=== PATIENT | male | born 1990 | race Caucasian/White ===

== ENCOUNTER 2019-07-28 02:39 | Emergency (ER) | payer SELFPAY ==
[~2019-07-28] VITALS: Ht 188 cm; Wt 86.4 kg
[2019-07-28 02:42] VITALS: BP 123/80
== END 2019-07-28 04:19 | disposition home or self-care (01) ==
LOC: ED 03:45
DX: S00.03XA Contusion of scalp, initial encounter (principal); S00.12XA Contusion of left eyelid and periocular area, initial encounter; S00.81XA Abrasion of other part of head, initial encounter; Y04.8XXA Assault by other bodily force, initial encounter; Y93.89 Activity, other specified; Y92.098 Other place in other non-institutional residence as the place of occurrence of the external cause; Y99.8 Other external cause status
CPT/HCPCS: 70450; 70486; 99285

== ENCOUNTER 2019-11-03 13:51 | Emergency (ER) | payer SELFPAY ==
[~2019-11-03] VITALS: Ht 182.9 cm; Wt 78.0 kg
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
[2019-11-03 13:56] VITALS: BP 127/82
--- NOTE | 2019-11-03 14:02 | NUR ---
sri had brought patient to bathroom but he wouldnt come out. went and opened door and he was dressed staring at his pee in the cup. he then began screaming that its not sterile. i asked for cup and he then threw cup away. he is very erratic behavior and talking about unrelated things, he isn't getting into bed, not allowing me to take vitals to check him in. repetitive questions. got md saavedra.
--- NOTE | 2019-11-03 14:22 | NUR ---
CONSENT TO UPDATE PT MOM (RYAN) ON PT STATUS OK BY PT.
--- NOTE | 2019-11-03 14:31 | NUR ---
BREAK RN: PT PACING AROUND ROOM, REFUSING VITAL SIGNS. PT RAMBLING AND CAN NOT BE REDIRECTED. PT EXPERIENCING PARANOIA. AT BEDSIDE SPEAKING W/ PT AFTER SPEAKING W/ PTS MOM ON PHONE.
[2019-11-03] MEDS ORDERED: LORazepam 1MG TABLET ONE (14:35)
--- NOTE | 2019-11-03 14:40 | NUR ---
PT AMBULATED TO THE BR W/ A STEADY GAIT.
--- NOTE | 2019-11-03 14:52 | NUR ---
BREAK RN: PT ASKED TO COME OUT OF BATHROOM, PT STATES "I JUST NEED ONE MORE MINUTE" REFUSING TO COME OUT OF BATHROOM AT THIS TIME.
[2019-11-03] MEDS ORDERED: LORazepam 1MG TABLET PO ONE (15:00)
[2019-11-03] MEDS ORDERED: PLEASE ENTER ALLERGIES MC SCH (15:00)
--- NOTE | 2019-11-03 15:01 | NUR ---
BREAK RN: PT REFUSING TO COME OUT OF BATHROOM, SECURITY CALLED. SECURITY CLOSED DOOR AND TOLD PT THEY WOULD GIVE HIM 5 MORE MINUTES AND THEN HE WOULD WALK BACK TO THE ROOM.
--- NOTE | 2019-11-03 15:04 | NUR ---
GOT BACK FROM [facility] AND PATIENT HAS REPORTEDLY BEEN IN BATHROOM 20MINUTES WITH DOOR LOCKED. GOT HERMAN AND UNLOCKED AND HES STANDING AT MIRROR NOT ANSWERING QUESTIONS JUST SAYING HE NEED PRIVACY. CALLED SECURITY, THEY ARE HERE AND ATTEMPTING TO GET HIM OUT OF BATHROOM.
--- NOTE | 2019-11-03 15:05 | NUR ---
BREAK RN: PT REFUSING TREATMENT, REFUSING TO AMBULATED BACK TO ROOM. DENIES SI/HI. PT STATES HE JUST WANTS HIS MOM TO PICK HIM UP. PT ESCORTED BY SECURITY OUT OF ED.
--- NOTE | 2019-11-03 15:10 | NUR ---
BREAK RN: PER , PT IS TO BE PLACED ON LEGAL HOLD. SECURITY OUTSIDE AMBULANCE BAY W/ PT AND UPDATED ON PLAN.
[2019-11-03] MEDS ORDERED: ZIPRASIDONE 20 MG INJ IM ONE ×2 (15:12→15:30)
--- NOTE | 2019-11-03 15:35 | NUR ---
SECURITY AT BEDSIDE. PATIENT STANDING IN CORNER AND REFUSING ALL CARE. MEDICATED. PATIENT PACES AROUND ROOM. REPEATS HIMSELF. VERY ERRATIC BEHAVIOR. REFUSING TO TAKE CLOTHES OFF. ALL OBJECTS OF HARM REMOVED. STILL ATTEMPTING TO GET HIM UNDRESSED.
--- NOTE | 2019-11-03 15:37 | NUR ---
TASK RN: PT CONSENTED TO [facility].
--- NOTE | 2019-11-03 15:50 | NUR ---
TASK RN: PT STILL REFUSING TO REMOVE CLOTHING. PT REFUSING HEAD CT R/T INSURANCE RESASONS.
--- NOTE | 2019-11-03 15:56 | NUR ---
TASK RN: PT REPORTS SMOKING A LARGE AMOUNT OF WEED TODAY AND ACKNOWLEDGES THAT MAY BE THE SOURCE OF HIS ERRATIC BEHAVIOR. OFFERED TO PT TO WALK TO SHOWER ROOM AND LEAVE DOOR CRACKED SO HE CAN CHANGE PRIVATELY BUT PT STILL REFUSING TO CHANGE, STATES HE WOULD WANT THE DOOR SHUT ALL THE WAY. PT EDUCATED ON ED PROCESS AND PROTOCOLS FOR PT SAFETY.
--- NOTE | 2019-11-03 16:05 | NUR ---
TASK RN: PER DIRECTOR LEARNING, PT RAN OUT OF ROOM AND OUT AMBULANCE BAY. SECURITY NOTIFIED. HARJIT RN CALLED [facility].
--- NOTE | 2019-11-03 16:07 | NUR ---
TASK RN: UPDATED ON PT ELOPEMENT.
[2019-11-03 16:09] LABS: BASOPHILS # (AUTO) 0.02 x10^3/uL (0-0.1); BASOPHILS % (AUTO) 0 % (0-1); EOSINOPHILS # (AUTO) 0.07 x10^3/uL (0-0.4); EOSINOPHILS % (AUTO) 1 % (1-7); LYMPHOCYTES # (AUTO) 1.05 x10^3/uL (1-3.4); LYMPHOCYTES % (AUTO) 21 % (22-44); MD NO; MEAN CORPUSCULAR HEMOGLOBIN 31.3 pg (27.5-34.5); MEAN CORPUSCULAR HGB CONC 33.1 g/dL (33.2-36.2); MEAN CORPUSCULAR VOLUME 94.4 fL (81-97); MEAN PLATELET VOLUME 8.1 fL (7.4-10.4); MONOCYTES # (AUTO) 0.42 x10^3/uL (0.2-0.8); MONOCYTES % (AUTO) 8 % (2-9); NEUTROPHILS # (AUTO) 3.53 x10^3/uL (1.8-6.8); NEUTROPHILS % (AUTO) 69 % (42-75); PLATELET COUNT 212 x10^3/uL (130-400); RED BLOOD COUNT 4.56 x10^6/uL (4.38-5.82); RED CELL DISTRIBUTION WIDTH 14.4 % (9.4-14.8)
[2019-11-03 16:18] LABS: ALANINE AMINOTRANSFERASE 35 U/L (12-78); ALBUMIN 4.3 g/dL (3.4-5.0); ANION GAP 7 mmol/L (5-15); CALCIUM 9.4 mg/dL (8.5-10.1); CHLORIDE 112 mmol/L (98-107); CREATININE 0.81 mg/dL (0.7-1.3)
[2019-11-03 16:23] LABS: ALKALINE PHOSPHATASE 62 U/L (45-117); BILIRUBIN,TOTAL 0.4 mg/dL (0.2-1.0)
[2019-11-03 16:26] LABS: SALICYLATE LEVEL < 1.7 mg/dL (2.8-20.0)
== END 2019-11-03 15:08 ==
LOC: EDBD 13:51 → ED 15:02 → MERGE 15:57 → ED 16:08
DX: S09.90XA Unspecified injury of head, initial encounter (principal); F22 Delusional disorders; X58.XXXA Exposure to other specified factors, initial encounter; Y93.89 Activity, other specified; Y92.488 Other paved roadways as the place of occurrence of the external cause; Y99.8 Other external cause status
CPT/HCPCS: 36415; 80053; 80307; 85025; 96372; 99283; J3486

== ENCOUNTER 2019-12-24 21:38 | Emergency (ER) | payer MEDICAID, OTHER ==
[~2019-12-24] VITALS: Ht 188 cm; Wt 75.0 kg
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
[2019-12-24] MEDS ORDERED: LIDOCAINE-MPF 1%, 5ML ONE (21:55)
--- NOTE | 2019-12-24 22:08 | NUR ---
PT REFUSING SUTURES FOR LACERATIONS. PT TO GO BACK WITH [facility]. ERP STATES TO HOLD KURT
[2019-12-24] MEDS ORDERED: ZIPRASIDONE 20 MG INJ IM ONE ×2 (22:14→22:30)
--- NOTE | 2019-12-24 22:21 | NUR ---
PER MD, PT TO RECIEVE [facility]ON IM TO CALM PT DOWN FOR LAC REPAIR. PT IS ALTERED, A/OX1, AND MEDICALLY IT IS NECESSARY TO REPAIR LACERATION PRIOR TO GOING BACK TO ALF. PT MEDICATED PER EMAR, PT QUITE RESTLESS.
--- NOTE | 2019-12-24 22:33 | NUR ---
PT MUMBLING TO HIMSELF, STARING INTENSLY AT THIS RN, AND RESTLESS IN BED. PT ON CONTINUOUS PULSE OX.
--- NOTE | 2019-12-24 23:07 | NUR ---
ERP AT BEDSIDE FOR SUTURES, PT DOZING UNTERMITTENTLY DURING REPAIR.
[2019-12-24] MEDS ORDERED: NEOSPORIN OINT. PKT 1 PACKET ONE (23:31)
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
[2019-12-24 23:45] VITALS: BP 119/76
== END 2019-12-24 23:48 | disposition home or self-care (01) ==
LOC: ED 21:52
DX: S01.81XA Laceration without foreign body of other part of head, initial encounter (principal); F20.9 Schizophrenia, unspecified; F17.290 Nicotine dependence, other tobacco product, uncomplicated; R41.82 Altered mental status, unspecified; W18.30XA Fall on same level, unspecified, initial encounter; Y93.89 Activity, other specified; Y92.410 Unspecified street and highway as the place of occurrence of the external cause; Y99.8 Other external cause status
CPT/HCPCS: 12013; 96372; 99283; 99406; J3486; 12011

== ENCOUNTER 2020-01-06 06:42 | Emergency (ER) | payer MEDICAID, OTHER ==
[~2020-01-06] VITALS: Ht 188 cm; Wt 82.3 kg
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
[2020-01-06] MEDS ORDERED: DIPH,PERTUSS(ACELL),TET VAC/PF 0.5 ML IM-VACC ONE ×2 (07:00→08:04)
--- NOTE | 2020-01-06 07:04 | NUR ---
REPORT GIVEN TO BORIS KRISHNAN
--- NOTE | 2020-01-06 07:50 | NUR ---
SBAR HAND-OFF REPORT RECEIVED FROM BORIS COBIAN. ASSUMING CARE OF PATIENT.
[2020-01-06] MEDS ORDERED: NEOSPORIN OINT. PKT 1 PACKET ONE (08:15)
--- NOTE | 2020-01-06 08:26 | NUR ---
PATIENT REFUSED TDaP INJECTION. DR. ZACHARIAH GARCIA.
[2020-01-06 09:06] VITALS: BP 136/82
--- NOTE | 2020-01-06 09:07 | NUR ---
Patient given discharge instructions and they have confirmed that they understand the instructions. Patient ambulatory with steady gait.
== END 2020-01-06 09:08 | disposition home or self-care (01) ==
LOC: ED 09:02
DX: S00.01XA Abrasion of scalp, initial encounter (principal); F17.200 Nicotine dependence, unspecified, uncomplicated; X58.XXXA Exposure to other specified factors, initial encounter; Y93.89 Activity, other specified; Y92.488 Other paved roadways as the place of occurrence of the external cause; Y99.8 Other external cause status
CPT/HCPCS: 70450; 99284

== ENCOUNTER 2020-01-09 12:25 | Emergency (ER) | payer MEDICAID ==
--- NOTE | 2020-01-09 12:40 | NUR ---
PT IN BATHROOM.
--- NOTE | 2020-01-09 12:51 | NUR ---
NO ANSWER FROM LOBBY X2
--- NOTE | 2020-01-09 13:17 | NUR ---
PT NOT IN LOBBY X3. NO RESPONSE FROM LOBBY
== END 2020-01-09 13:18 | disposition left against medical advice (07) ==
LOC: ED 13:07
DX: R22.0 Localized swelling, mass and lump, head (principal); Z53.21 Procedure and treatment not carried out due to patient leaving prior to being seen by health care provider

== ENCOUNTER 2020-02-09 11:49 | Emergency (ER) | payer MEDICAID ==
--- NOTE | 2020-02-09 12:09 | NUR ---
FIRE BEHAVIOR ANALYST: PT [email or web address]
--- NOTE | 2020-02-09 12:16 | NUR ---
TILE AND MARBLE INSTALLER: [email or web address]
--- NOTE | 2020-02-09 12:37 | NUR ---
KRISTIAN RN: [email or web address]
== END 2020-02-09 12:39 | disposition left against medical advice (07) ==
LOC: ED 12:30
DX: R51.9 Headache, unspecified (principal); Z53.21 Procedure and treatment not carried out due to patient leaving prior to being seen by health care provider

== ENCOUNTER 2020-03-08 11:33 | Inpatient (IN) | payer MEDICAID ==
[~2020-03-08] VITALS: Ht 188 cm; Wt 72.2 kg
[2020-03-08] MEDS ORDERED: BISACODYL 10 MG SUPP PR PRN (13:30)
[2020-03-08] MEDS ORDERED: DOCUSATE 100 MG CAPSULE PO PRN (13:30)
[2020-03-08] MEDS ORDERED: POLYETHYLENE GLYCOL 17 GM PACKET PO PRN (13:30)
[2020-03-08] MEDS ORDERED: ACETAMINOPHEN 325 MG TABLET PO PRN (13:30)
[2020-03-08] MEDS ORDERED: ONDANSETRON ODT 4 MG PO PRN (13:30)
[2020-03-08] MEDS ORDERED: HALOPERIDOL 5 MG TABLET PO PRN (13:30)
[2020-03-08 14:28] VITALS: BP 110/77
[2020-03-08] MEDS ORDERED: PLEASE ENTER HEIGHT AND WEIGHT MC SCH (14:30)
[2020-03-08] MEDS ORDERED: FLU VACC QS2020-21(6MOS UP)/PF 60MCG/0.5 ML SYR IM ONE (15:00)
[2020-03-08 19:30] VITALS: BP 124/66
[2020-03-09 07:00] VITALS: BP 120/70
[2020-03-09] MEDS ORDERED: HYDROXYZINE PAMOATE 50MG CAP PO PRN (11:30)
[2020-03-09] MEDS: CARIPRAZINE 1.5 MG CAP PO SCH (12:00)
[2020-03-09] MEDS: FLUOXETINE HCL 20 MG CAPSULE PO SCH (12:14)
[2020-03-09 19:14] VITALS: BP 114/66
[2020-03-10 07:28] VITALS: BP 107/59
[2020-03-10] MEDS: FLUOXETINE HCL 20 MG CAPSULE PO SCH (09:05)
[2020-03-10] MEDS: CARIPRAZINE 1.5 MG CAP PO SCH (09:08)
[2020-03-10] MEDS: VRAYLAR 1.5 MG HOMEMEDPO SCH (12:39)
[2020-03-10 19:38] VITALS: BP 101/60
[2020-03-11 07:15] VITALS: BP 113/63
[2020-03-11] MEDS: FLUOXETINE HCL 20 MG CAPSULE PO SCH (08:07)
[2020-03-11] MEDS: VRAYLAR 1.5 MG HOMEMEDPO SCH (08:08)
[2020-03-11] MEDS ORDERED: HYDR50CA2 PO (11:24)
[2020-03-11] MEDS ORDERED: FLUO20CA23 PO (11:24)
[2020-03-11] MEDS ORDERED: VRAYLAR HOMEMEDPO (11:24)
[2020-03-11 19:34] VITALS: BP 107/64
[2020-03-12 07:42] VITALS: BP 107/63
[2020-03-12] MEDS ORDERED: FLUOXETINE HCL 20 MG CAPSULE PO SCH (09:00)
[2020-03-12] MEDS ORDERED: VRAYLAR 3 MG HOMEMEDPO SCH (09:00)
== END 2020-03-12 13:30 | disposition home or self-care (01) | DRG 750 ==
LOC: 3E 14:13
PROVIDERS: ADMIT Psychiatry & Neurology Psychosomatic Medicine; ATTEND Psychiatry & Neurology Psychosomatic Medicine
DX: F25.0 Schizoaffective disorder, bipolar type (principal); F14.10 Cocaine abuse, uncomplicated; F12.10 Cannabis abuse, uncomplicated; F15.20 Other stimulant dependence, uncomplicated; F33.2 Major depressive disorder, recurrent severe without psychotic features; F41.1 Generalized anxiety disorder; F17.210 Nicotine dependence, cigarettes, uncomplicated; F42.9 Obsessive-compulsive disorder, unspecified; Z79.899 Other long term (current) drug therapy; Z71.6 Tobacco abuse counseling
CPT/HCPCS: 93005; Q0162

== ENCOUNTER 2020-03-22 00:23 | Emergency (ER) | payer MEDICAID ==
[~2020-03-22] VITALS: Ht 190.5 cm; Wt 71.0 kg
[~2020-03-22 00:23] MED LIST: FLUO20CA23 PO; HYDR50CA2 PO; VRAYLAR HOMEMEDPO
[2020-03-22 00:25] VITALS: BP 136/92
[2020-03-22] MEDS ORDERED: OLANZAPINE 5 MG TABLET ONE (00:46)
[2020-03-22] MEDS ORDERED: LORazepam 1MG TABLET ONE (00:46)
[2020-03-22] MEDS ORDERED: OLANZAPINE 5 MG TABLET PO ONE (01:00)
[2020-03-22] MEDS ORDERED: LORazepam 1MG TABLET PO ONE (01:00)
--- NOTE | 2020-03-22 01:54 | NUR ---
Patient given discharge instructions and they have confirmed that they understand the instructions. Patient ambulatory with steady gait. Pt given taxi voucher upon d/c
== END 2020-03-22 01:58 | disposition home or self-care (01) ==
LOC: ED 01:23
DX: R00.2 Palpitations (principal); F41.1 Generalized anxiety disorder; I51.7 Cardiomegaly; F17.200 Nicotine dependence, unspecified, uncomplicated
CPT/HCPCS: 93005; 99283